=== PATIENT | male | born 1990 | race Caucasian/White ===

== ENCOUNTER 2020-05-11 09:20 | Emergency (ER) | payer OTHER, SELFPAY ==
[2020-05-11 09:31] VITALS: BP 129/87; PULSE 83; RESP 16; TEMP 36.7; O2SAT 98; BMI 29.8
--- NOTE | 2020-05-11 10:05 | XR_ITS ---
EXAMINATION: XR RIBS, LEFT CLINICAL INFORMATION: Injury COMPARISON: None TECHNIQUE: 3 views of the left ribs were obtained. AP supine view of the chest. FINDINGS: Lungs are clear. No consolidation, pneumothorax, or pleural effusion. The cardiomediastinal silhouette and pulmonary vasculature are normal. Osseous structures are unremarkable. Ribs are intact. No fractures are identified. XR/XR ribs LT min 3V w CXR1V IMPRESSION: Clear lungs. No focal abnormality of the left ribs.
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
--- NOTE | 2020-05-11 10:07 | XR_ITS ---
EXAMINATION: XR LUMBOSACRAL SPINE CLINICAL INFORMATION: Injury COMPARISON: None TECHNIQUE: Three views of the lumbosacral spine. FINDINGS: The vertebral bodies and posterior elements are normal. The disc spaces are preserved and the vertebral alignment is normal. The sacroiliac joints are symmetric. The sacrum is intact. The bowel gas pattern is unremarkable. The paraspinal soft tissues are normal. XR/XR lumbar spine 2-3V IMPRESSION: Normal lumbar spine radiographs.
--- NOTE | 2020-05-11 10:13 | PC.NURSE ---
CLOE MADERA AT BEDSIDE FOR EXAM, HARD COLLAR REMOVED BY PA, PT AWAITING XRAYS
[2020-05-11] MEDS: Acetaminophen 325 MG TABLET 650 MG PO (10:49)
[2020-05-11] MEDS: Ibuprofen 600 MG TABLET PO (11:52)
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
== END 2020-05-11 12:35 | disposition home or self-care (01) ==
PROVIDERS: Emergency Provider Emergency Medicine
DX: S30.0XXA Contusion of lower back and pelvis, initial encounter (principal); S33.5XXA Sprain of ligaments of lumbar spine, initial encounter; G43.909 Migraine, unspecified, not intractable, without status migrainosus; R07.89 Other chest pain; M25.571 Pain in right ankle and joints of right foot; V63.5XXA Driver of heavy transport vehicle injured in collision with car, pick-up truck or van in traffic accident, initial encounter; Y93.9 Activity, unspecified; Y92.410 Unspecified street and highway as the place of occurrence of the external cause; Y99.0 Civilian activity done for income or pay; Z79.899 Other long term (current) drug therapy
CPT/HCPCS: 71101; 72100; 99284

== ENCOUNTER → 2020-05-13 13:23 | Outpatient (BNVA) | payer OTHER, SELFPAY | PROVIDERS: Visit Provider Internal Medicine | DX: S23.41XA Sprain of ribs, initial encounter (principal); V89.2XXA Person injured in unspecified motor-vehicle accident, traffic, initial encounter; M54.2 Cervicalgia; M54.5 Low back pain; F07.81 Postconcussional syndrome | CPT/HCPCS: 70450; 72125; 99204 ==

== ENCOUNTER → 2020-05-18 12:37 | Outpatient (BNVA) | payer OTHER, SELFPAY | PROVIDERS: Visit Provider Physician Assistant | DX: S23.41XA Sprain of ribs, initial encounter (principal); V89.2XXA Person injured in unspecified motor-vehicle accident, traffic, initial encounter; F07.81 Postconcussional syndrome; M54.2 Cervicalgia; M54.5 Low back pain | CPT/HCPCS: 99213 ==

== ENCOUNTER → 2020-06-01 15:20 | Outpatient (BNVA) | payer OTHER, SELFPAY | PROVIDERS: Visit Provider Physician Assistant | DX: S22.32XD Fracture of one rib, left side, subsequent encounter for fracture with routine healing (principal); V89.2XXD Person injured in unspecified motor-vehicle accident, traffic, subsequent encounter; M54.2 Cervicalgia; M54.5 Low back pain | CPT/HCPCS: 99213 ==

== ENCOUNTER 2020-07-08 11:00 | Outpatient (RCR) | payer OTHER, SELFPAY ==
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
--- NOTE | 2020-07-22 10:32 | MHC.PT.DC ---
[facility] [place] Office [place] Office [place] Office [address] Lilibeth Crowell [address] [phone] F: [phone] F: [phone] F: [phone] F: [phone] Physical Therapy Discharge Report Diagnosis: Cervicalgia, concussion, low back pain Date of Surgery: NA Date of Evaluation: 05/19/20 Date of Discharge: 07/22/20 Treatments to Date: 14 Cancellations to Date: 0 No Shows to Date: 0 Discharge Status: Achieved Goals Improved Function Discharge Summary: Pt arrived with no pain. He has been able to perform all exercises without any discomfort. Body mechanics training was to be done in the last week of therapy however pt did not show up for his last 2 appointments. Pt therefore d/c from therapy. Electronically signed by: Cheri Valdivia DPT Please sign and return to therapist. Thank you for your referral.
== END 2020-07-22 10:33 | disposition other institution (70) ==
LOC: HO.PT 11:00
PROVIDERS: Visit Provider Physician Assistant
DX: M54.2 Cervicalgia (principal); M54.5 Low back pain; S06.0X9D Concussion with loss of consciousness of unspecified duration, subsequent encounter; V89.2XXD Person injured in unspecified motor-vehicle accident, traffic, subsequent encounter
CPT/HCPCS: 97014; 97110; 97140; 97162

== ENCOUNTER → 2020-07-09 15:07 | Outpatient (BNVA) | payer OTHER, SELFPAY | PROVIDERS: Visit Provider Physician Assistant Medical | DX: S20.222D Contusion of left back wall of thorax, subsequent encounter (principal); V89.2XXD Person injured in unspecified motor-vehicle accident, traffic, subsequent encounter; F07.81 Postconcussional syndrome; M54.2 Cervicalgia; M54.5 Low back pain | CPT/HCPCS: 99213 ==

== ENCOUNTER → 2020-08-14 15:48 | Outpatient (BNVA) | payer OTHER, SELFPAY | PROVIDERS: Visit Provider Physician Assistant Medical | DX: F07.81 Postconcussional syndrome (principal); M54.2 Cervicalgia; S20.219D Contusion of unspecified front wall of thorax, subsequent encounter; V89.2XXD Person injured in unspecified motor-vehicle accident, traffic, subsequent encounter | CPT/HCPCS: 99213 ==

== ENCOUNTER 2021-02-09 13:42 | Outpatient (REF) | payer OTHER, SELFPAY | END 2021-02-09 13:43 | disposition home or self-care (01) | LOC: HO.LAB 13:42 | PROVIDERS: Visit Provider Internal Medicine | DX: Z20.822 Contact with and (suspected) exposure to COVID-19 (principal) | CPT/HCPCS: C9803; U0003; U0005 ==

== ENCOUNTER 2021-12-27 01:16 | Emergency (ER) | payer SELFPAY ==
--- NOTE | ~2021-12-27 | CT_ITS ---
EXAMINATION: CT ABDOMEN AND PELVIS WITHOUT CONTRAST CLINICAL INFORMATION: Abdominal pain. Hematuria. COMPARISON: None TECHNIQUE: Multidetector volumetric imaging was performed from the superior aspect of the liver through the pubic symphysis. Sagittal and coronal reformatted images were obtained on the technologist's workstation. This CT examination was performed using dose optimization techniques as appropriate, variously including the following: *Automated exposure control *Adjustment of mA and/or kV according to patient size (this includes techniques or standardized protocols for targeted exams where dose is matched to indication/reason for exam; i.e. extremities or head) *Use of iterative reconstruction technique DLP: 486 mGy-cm FINDINGS: LUNG BASES: The visualized lung bases are unremarkable. LIVER, GALLBLADDER, AND BILIARY TREE: The liver is normal in size, shape, and attenuation. No focal hepatic lesion or biliary ductal dilatation is present. The gallbladder is unremarkable with no evidence of radiopaque gallstones, gallbladder wall thickening, or obvious pericholecystic inflammatory changes. PANCREAS: Unremarkable. SPLEEN: Unremarkable. ADRENAL GLANDS: Unremarkable. KIDNEYS AND URETERS: The kidneys are normal in size, shape, and attenuation. No hydronephrosis, hydroureter, or calculi seen. No perinephric stranding. BLADDER: Unremarkable. GASTROINTESTINAL TRACT: The small and large bowel are unremarkable. The appendix is unremarkable. ABDOMINAL WALL: No significant hernia is appreciated. LYMPH NODES: Normal. VASCULAR: Unremarkable. PELVIC VISCERA: The prostate and seminal vesicles are unremarkable. OSSEOUS STRUCTURES: Unremarkable. CT/CT abdomen pelvis wo con IMPRESSION: No suspicious finding of the abdomen or pelvis. No inflammatory change. No hydronephrosis or nephrolithiasis. Fleischner guidelines were followed.
[2021-12-27 01:42] VITALS: BP 148/77; PULSE 75; RESP 16; TEMP 36.9; O2SAT 98; BMI 29.8
--- NOTE | 2021-12-27 01:45 | ECG_ITS ---
Test Reason : CHEST PAIN Blood Pressure : / mmHG Vent. Rate : 075 BPM Atrial Rate : 075 BPM P-R Int : 174 ms QRS Dur : 094 ms QT Int : 352 ms P-R-T Axes : 027 070 009 degrees QTc Int : 393 ms Normal sinus rhythm Normal ECG No previous ECGs available Referred By: Generic ED Physician Electronically Signed By:ULYSSES MARLEY
[2021-12-27 02:41] LABS: Hematocrit 44.3 % (42.0-52.0); Hemoglobin 15.4 g/dl (14.0-18.0); Mean Corpuscular HGB Conc 34.8 g/dl (31.0-36.0); Mean Corpuscular Volume 86.4 fL (80.0-98.0); Mean Platelet Volume 9.5 fL (9.4-12.4); Platelet Count 266 X10*3/uL (160-400); Red Blood Count 5.13 X10*6/uL (4.60-5.80); Red Cell Distribution Width 11.9 % (11.0-16.0); White Blood Count 6.7 X10*3/uL (4.8-10.8)
--- NOTE | 2021-12-27 02:59 | ED.GENADULT ---
HPI - General Adult General Chief complaint: General Medical Stated complaint: urogenital male Time Seen by Provider: 12/27/21 02:59 Source: patient Limitations: no limitations History of Present Illness HPI narrative: this is a 31-year-old male with multiple complaints. Today noted that he had blood in his urine. Denied any abdominal pain or back pain today but does note he has had intermittent right-sided chest pain as well as dizziness. He denies shortness of breath or cough. Denies fever. He did about 4 days ago have severe mid abdominal pain that lasted a few minutes, but did not return. He has no prior history of kidney stones. Related Data Previous Rx's Medication Instructions Recorded nuzxdhbmlw-vfjtisntkrfsg-rrcdxnsf 1 - 2 cap PO Q6H PRN migraine pain 05/11/20 50 mg-300 mg-40 mg capsule #14 caps (Fioricet) ibuprofen 600 mg tablet 600 mg PO Q6H PRN pain #20 tabs 05/11/20 ondansetron HCl 4 mg tablet 4 mg PO Q6H PRN nausea and 05/11/20 (Zofran) vomiting #14 tabs Allergies Allergy/AdvReac Type Severity Reaction Status Date / Time No Known Allergies Allergy Unverified 03/12/20 16:11 Review of Systems Review of Systems: As per HPI Yes all other systems are reviewed and are negative PMFSH Social History Social History Advance Directives: No Advance Directives Information Provided: No Physical Exam ED Vital Signs: Vital Signs - 24 hr 12/27/21 01:42 12/27/21 03:16 12/27/21 04:07 Temperature 98.5 F Pulse Rate 75 78 72 Respiratory Rate 16 16 16 Blood Pressure 148/77 H 142/77 H 146/82 H Pulse Oximetry 98 98 97 Oxygen Delivery Method Room Air Room Air Room Air BMI result Body Mass Index 29.8 Const General: no acute distress Orientation/consciousness: patient oriented x3 HENMT Head: Yes normal to inspection General nose exam: Normal external nose present Mouth: moist mucous membranes Throat: Yes posterior oropharynx normal, Yes tonsils normal and Yes uvula midline Eyes Eyelids: Yes eyelids normal Conjunctivae: conjunctivae normal Pupils: Equal, round and reactive pupils present Neck Neck: Yes supple Resp Effort & Inspection: normal respiratory effort Auscultation: clear to auscultation bilaterally Cardio Rate: regular rate Rhythm: regular rhythm Heart sounds: S1 normal heart sound present, S2 normal heart sound present, no gallops, no murmurs and no rubs GI Inspection: No distended Palpation (GI): Soft to palpation and nontender Auscultation: normal bowel sounds Skin General skin exam: other (Warm and dry) Neuro General: patient oriented x3 and CN's II-XI intact bilaterally Cranial nerves: Yes Equal, round and reactive pupils present Extrem General: Yes no pedal edema Psych Affect: normal affect Attitude: cooperative Medical Decision Making MDM Narrative Medical decision making narrative: patient has multiple complaints including intermittent right-sided chest pain, dizziness, hematuria today, acute abdominal pain 3-4 days ago lasting only a few minutes. Urinalysis did show microscopic hematuria. EKG was normal. CT of the abdomen pelvis did not show any concerning findings, no evidence of renal stones or ureteral stones. LFTs showed mild elevation of alkaline phosphatase and transaminases. CBC was normal. Patient will be referred to Urology regarding his hematuria, can follow up with his primary care physician regarding his mild LFT abnormalities, and other complaints. Patient overall appeared well clinically, had a normal exam Lab Data Result diagrams: 12/27/21 02:12/27/21 02:33 Labs: Lab Results 12/27/21 12/27/21 12/27/21 Range/Units 02:33 02:33 03:00 WBC 6.7 (4.8-10.8) X10*3/uL RBC 5.13 (4.60-5.80) X10*6/uL Hgb 15.4 (14.0-18.0) g/dl Hct 44.3 (42.0-52.0) % MCV 86.4 (80.0-98.0) fL MCH 30.0 (27.0-33.0) pg MCHC 34.8 (31.0-36.0) g/dl RDW 11.9 (11.0-16.0) % Plt Count 266 (160-400) X10*3/uL MPV 9.5 (9.4-12.4) fL Absolute Nucleated RBC 0.000 (0.0-0.012) X10*3/uL Nucleated RBC % (auto) 0.0 (0.0-0.2) /100WBC Sodium 135 (135-145) mmol/L Potassium 4.2 (3.3-5.1) mmol/L Chloride 102 (96-108) mmol/L Carbon Dioxide 24 (22-29) mmol/L Anion Gap 13 (12-20) BUN 11 (9-16) mg/dL Creatinine 1.00 (0.5-1.4) mg/dL Estim Creat Clear Calc 109.7 Estimated GFR > 60 Random Glucose 107 (60-115) mg/dL Calcium 9.3 (8.4-10.2) mg/dL Total Bilirubin 0.6 (0.0-1.0) mg/dL AST 44 H (5-37) U/L ALT 84 H (0-40) U/L Alkaline Phosphatase 135 H (39-117) U/L Total Protein 8.3 H (6.5-8.0) g/dL Albumin 4.7 (3.5-5.0) g/dL Lipase 32 (8-78) U/L Urine Color YELLOW Urine Appearance CLEAR Urine pH 6.0 (5.0-8.0) Ur Specific [place] 1.020 (1.005-1.025) Urine Protein NEG (NEG-TRACE) MG/DL Urine Glucose (UA) NEG (NEG) MG/DL Urine Ketones NEG (NEG) MG/DL Urine Blood 3+ H (NEG) Urine Nitrite NEG (NEG) Ur Leukocyte Esterase NEG (NEG) Urine RBC 30-49 H (0) /HPF Urine WBC 1-4 (0-4) /HPF Ur Squamous Epith Cells 1+ /LPF Urine Bacteria 1+ /LPF Imaging Data CT abdomen pelvis without contrast: Radiologist's impression: IMPRESSION: No suspicious finding of the abdomen or pelvis. No inflammatory change. No hydronephrosis or nephrolithiasis.? ECG Data Attestation: I personally reviewed and interpreted this ECG as follows: Interpretation: sinus rhythm with a rate of 75. No ST elevation or depression. No ectopy. Normal EKG. Discharge Plan Discharge Clinical Impression: Hematuria, microscopic, Elevated liver transaminase level, Dizziness Patient Disposition: Home, Self-Care Instructions: Hematuria (ED) Additional Instructions: Follow-up with primary care physician regarding her mildly elevated liver tests. Follow up with Dr. Michelle of Urology regarding your blood in your urine. Return for any new or worsened symptoms. Drink plenty of fluids Prescriptions: No Action ytwoatlhqk-hnlqtxxibwlnm-ahzn [Fioricet] 50-300-40 mg capsule 1 - 2 cap PO Q6H PRN (Reason: migraine pain) Qty: 14 0RF ibuprofen 600 mg tablet 600 mg PO Q6H PRN (Reason: pain) Qty: 20 0RF ondansetron HCl [Zofran] 4 mg tablet 4 mg PO Q6H PRN (Reason: nausea and vomiting) Qty: 14 0RF Referrals: Jin Michelle MD [Physician] - Interventions: ED Discharge Assessment Last Done: 12/27/21 04:25 Discharge Date/Time: 12/27/21 04:27
[2021-12-27 03:06] LABS: Appearance Urine CLEAR; Color Urine YELLOW; Glucose Urine UA NEG (NEG); Leukocyte Esterase Urine NEG (NEG); Nitrite Urine NEG (NEG); UACC Culture Trigger NO; Urine Blood 3+ (NEG); Urine Ketones NEG (NEG); Urine Protein NEG (NEG-TRACE)
[2021-12-27 03:16] VITALS: BP 142/77; PULSE 78; RESP 16; O2SAT 98
[2021-12-27 03:21] LABS: Bacteria Urine 1+ /LPF; RBC Urine 30-49 /HPF (0); Squamous Epithelial Cell Urine 1+ /LPF
[2021-12-27 03:31] LABS: Alanine Aminotransferase 84 U/L (0-40); Albumin Level 4.7 g/dL (3.5-5.0); Alkaline Phosphatase 135 U/L (39-117); Anion Gap 13 (12-20); Aspartate Amino Transferase 44 U/L (5-37); Bilirubin Total 0.6 mg/dL (0.0-1.0); Blood Urea Nitrogen 11 mg/dL (9-16); Calcium 9.3 mg/dL (8.4-10.2); Carbon Dioxide 24 mmol/L (22-29); Chloride 102 mmol/L (96-108); Creatinine Clr Calc Pharmacy 109.7; Estimated Glomerular Filt Rate > 60; Glucose Random 107 mg/dL (60-115); Lipase 32 U/L (8-78); Potassium 4.2 mmol/L (3.3-5.1); Sodium 135 mmol/L (135-145); Total Protein 8.3 g/dL (6.5-8.0)
[2021-12-27 04:07] VITALS: BP 146/82; PULSE 72; RESP 16; O2SAT 97
== END 2021-12-27 04:27 | disposition home or self-care (01) ==
PROVIDERS: Emergency Provider Emergency Medicine
DX: R31.29 Other microscopic hematuria (principal); R42 Dizziness and giddiness; R79.89 Other specified abnormal findings of blood chemistry; R10.9 Unspecified abdominal pain
CPT/HCPCS: 36415; 74176; 80053; 81001; 83690; 85027; 93005; 99284

== ENCOUNTER → 2022-02-08 09:28 | Outpatient (BNVA) | payer SELFPAY | PROVIDERS: Visit Provider Physician Assistant Medical | DX: Z02.79 Encounter for issue of other medical certificate (principal) ==